=== PATIENT | male | born 1940 | race Caucasian/White ===

== ENCOUNTER 2023-10-24 15:20 | Emergency (ER) | payer MEDICARE, BC ==
[~2023-10-24] VITALS: Ht 170.2 cm; Wt 68.0 kg
[2023-10-24 21:03] VITALS: BP 147/89; PULSE 99; RESP 24; TEMP 98.4; O2SAT 97
== END 2023-10-24 21:04 | disposition home or self-care (01) ==
LOC: ER 15:21
DX: I82.622 Acute embolism and thrombosis of deep veins of left upper extremity (principal); M79.602 Pain in left arm
CPT/HCPCS: 93971; 99284